=== PATIENT | male | born 1990 | race Caucasian/White ===

== ENCOUNTER 2020-10-03 11:02 | Inpatient (IN) | payer MEDICAID, OTHER ==
[~2020-10-03] VITALS: Ht 185.4 cm; Wt 110.8 kg
[~2020-10-03 11:02] MED LIST: ACET325T14 PO; ALPR0.5T7 PO
[2020-10-03] MEDS ORDERED: POLYETHYLENE GLYCOL 17 GM PACKET PO PRN (11:30)
[2020-10-03] MEDS ORDERED: ONDANSETRON ODT 4 MG PO PRN (11:30)
[2020-10-03] MEDS ORDERED: DOCUSATE 100 MG CAPSULE PO PRN (11:30)
[2020-10-03 12:55] VITALS: BP 100/63
[2020-10-03] MEDS ORDERED: PLEASE ENTER HEIGHT AND WEIGHT MC SCH (13:00)
[2020-10-03] MEDS: NICOTINE 14MG/24 HR PATCH.TD24 TD SCH (13:30)
[2020-10-03] MEDS ORDERED: DICL-249 PO (17:26)
[2020-10-03] MEDS ORDERED: CYCL10TA2 PO (17:26)
[2020-10-03 19:34] VITALS: BP 105/64
[2020-10-03] MEDS: OLANZAPINE 5 MG TABLET PO SCH (20:23)
[2020-10-03] MEDS: LORazepam 1MG TABLET PO PRN (20:27)
[2020-10-03] MEDS: ACETAMINOPHEN 325 MG TABLET PO PRN (20:48)
[2020-10-04 05:56] LABS: CHOL/HDL RATIO 4.6; FREE T4 (FREE THYROXINE) 1.02 ng/dL (0.76-1.46); LDL/HDL RATIO 2.8 (0.5-3.0)
[2020-10-04 07:29] VITALS: BP 111/72
[2020-10-04] MEDS: LORazepam 1MG TABLET PO PRN ×3 (09:39→23:20)
[2020-10-04] MEDS: ACETAMINOPHEN 325 MG TABLET PO PRN (09:39)
[2020-10-04] MEDS: NICOTINE 14MG/24 HR PATCH.TD24 TD SCH ×2 (13:30→17:58)
[2020-10-04 19:18] VITALS: BP 109/57
[2020-10-04] MEDS: OLANZAPINE 5 MG TABLET PO SCH (19:42)
[2020-10-05 07:54] VITALS: BP 96/55
[2020-10-05] MEDS: NICOTINE 14MG/24 HR PATCH.TD24 TD SCH (09:01)
[2020-10-05] MEDS: LORazepam 1MG TABLET PO PRN ×2 (09:01→14:12)
[2020-10-05 20:01] VITALS: BP 122/64
[2020-10-05] MEDS: OLANZAPINE 5 MG TABLET PO SCH (20:21)
[2020-10-06] VITALS (12 sets, daily range): BP systolic 110–134; BP diastolic 64–92
[2020-10-06] MEDS: LORazepam 1MG TABLET PO PRN ×2 (00:40→13:09)
[2020-10-06] MEDS: NICOTINE 14MG/24 HR PATCH.TD24 TD SCH (09:00)
[2020-10-06] MEDS: ACETAMINOPHEN 325 MG TABLET PO PRN (14:08)
[2020-10-06] MEDS: OLANZAPINE 5 MG TABLET PO SCH (20:39)
--- NOTE | 2020-10-06 21:40 | NUR ---
ANABEL LIMON - Fall Risk Medications present and NOT receiving anticoagulants. Signed: 10/06/20 at 2140 by Eber CORLEY
[2020-10-06 22:41] LABS: MICROSCOPIC AUTO
[2020-10-07 00:52] VITALS: BP 128/82
[2020-10-07 07:16] VITALS: BP 98/40
[2020-10-07] MEDS: NICOTINE 14MG/24 HR PATCH.TD24 TD SCH (10:28)
[2020-10-07] MEDS ORDERED: NICO-486 TD (13:52)
[2020-10-07] MEDS ORDERED: OLAN5TAB9 PO (13:52)
== END 2020-10-07 16:15 | disposition home or self-care (01) | DRG 751 ==
LOC: 3E 12:53
PROVIDERS: ADMIT Psychiatry & Neurology Psychosomatic Medicine; ATTEND Psychiatry & Neurology Psychosomatic Medicine
DX: F33.3 Major depressive disorder, recurrent, severe with psychotic symptoms (principal); R45.851 Suicidal ideations; F41.1 Generalized anxiety disorder; F17.210 Nicotine dependence, cigarettes, uncomplicated; F42.9 Obsessive-compulsive disorder, unspecified; F43.10 Post-traumatic stress disorder, unspecified; G89.29 Other chronic pain; M54.5 Low back pain; M48.00 Spinal stenosis, site unspecified; Z66 Do not resuscitate; Z59.0 Homelessness; Z91.5 Personal history of self-harm; Z88.8 Allergy status to other drugs, medicaments and biological substances; Z71.6 Tobacco abuse counseling
CPT/HCPCS: 36415; 80061; 81001; 84439; 84443; 93005

== ENCOUNTER 2021-02-20 22:31 | Emergency (ER) | payer MEDICAID ==
[~2021-02-20] VITALS: Ht 185.4 cm; Wt 102.4 kg
[~2021-02-20 22:31] MED LIST changes: +CYCL10TA2 PO; +DICL-249 PO; +NICO-486 TD; +OLAN5TAB69 PO
[2021-02-20] MEDS ORDERED: IBUPROFEN 600 MG TABLET PO ONE (23:30)
--- NOTE | 2021-02-20 23:33 | NUR ---
PATIENT AMBULATORY TO RESTROOM.
[2021-02-20 23:41] LABS: BASOPHILS % (AUTO) 1 % (0-1); EOSINOPHILS % (AUTO) 1 % (1-7); LYMPHOCYTES % (AUTO) 21 % (22-44); MEAN CORPUSCULAR HEMOGLOBIN 30.9 pg (27.5-34.5); MEAN CORPUSCULAR HGB CONC 33.2 g/dL (33.2-36.2); MEAN PLATELET VOLUME 9.1 fL (7.4-10.4); MONOCYTES % (AUTO) 9 % (2-9); NEUTROPHILS % (AUTO) 68 % (42-75); PLATELET COUNT 343 x10^3/uL (130-400); RED BLOOD COUNT 4.63 x10^6/uL (4.38-5.82); RED CELL DISTRIBUTION WIDTH 14.7 % (9.4-14.8)
--- NOTE | 2021-02-20 23:45 | NUR ---
PATIENT PROVIDED WITH SPRITE AND WARM BLANKETS REQUESTED.
[2021-02-20 23:53] LABS: CHLORIDE 104 mmol/L (98-107); SALICYLATE LEVEL 12.6 mg/dL (2.8-20.0)
[2021-02-20 23:56] LABS: ALANINE AMINOTRANSFERASE 29 U/L (12-78); BILIRUBIN,TOTAL 0.6 mg/dL (0.2-1.0); CREATININE 0.96 mg/dL (0.7-1.3); TOTAL PROTEIN 7.8 g/dL (6.4-8.2)
[2021-02-21] LABS: AMPHETAMINE SCREEN, URINE Positive (Negative); BARBITURATE SCREEN, URINE Negative (Negative); BENZODIAZEPINE SCREEN, URINE Positive (Negative); CANNABINOID SCREEN, URINE Negative (Negative); COCAINE SCREEN, URINE Negative (Negative); METHADONE SCREEN, URINE Negative (Negative); OPIATE SCREEN, URINE Negative (Negative)
[2021-02-21] MEDS ORDERED: IBUPROFEN 600 MG TABLET ONE (00:06)
[2021-02-21 00:09] LABS: ALBUMIN 4.2 g/dL (3.4-5.0); ANION GAP 10 mmol/L (5-15); CALCIUM 9.6 mg/dL (8.5-10.1)
--- NOTE | 2021-02-21 00:09 | NUR ---
PT REFUSED IBUPROFEN
[2021-02-21 00:11] LABS: ALKALINE PHOSPHATASE 71 U/L (45-117)
--- NOTE | 2021-02-21 00:50 | NUR ---
REPORT GIVEN TO KWADWO CHANDRA
--- NOTE | 2021-02-21 00:53 | NUR ---
Report from Delisa BURKETT
--- NOTE | 2021-02-21 03:01 | NUR ---
Patient resting with eyes closed, bilateral chest rise and fall, no apparent distress. Continue to monitor patient.
--- NOTE | 2021-02-21 04:22 | NUR ---
teledoc placed in room
--- NOTE | 2021-02-21 05:36 | NUR ---
Report from telepsych provider: Pt reports that he has SI to telepsych provider and that his plan is to hang himself. Pt didn't want to tell staff because he didnt want to be placed on a legal hold. Provider recomends hospitalization for pt saftey.
--- NOTE | 2021-02-21 05:54 | NUR ---
ZACH MANUEL IS TAKING A LOOK AT PT
--- NOTE | 2021-02-21 06:05 | NUR ---
room secure, 2 of 2 belongings bags placed in lock up. sitter initiated. patient verbalized understanding regarding legal hold status.
--- NOTE | 2021-02-21 06:08 | NUR ---
ZACH CHAND), ACCEPTING DR. LIMA
--- NOTE | 2021-02-21 06:54 | NUR ---
REPORT FROM KWADWO CHANDRA. PT RESTING IN [facility], EYES CLOSED, NADN AT THIS TIME, TM.
[2021-02-21 10:05] VITALS: BP 125/74
[2021-02-21] MEDS ORDERED: ARIP10TA33 PO (12:52)
[2021-02-21] MEDS ORDERED: SERT50TA28 PO (12:52)
== END 2021-02-21 10:16 ==
LOC: ED 23:12
DX: F33.9 Major depressive disorder, recurrent, unspecified (principal); R45.851 Suicidal ideations; M54.5 Low back pain; G89.29 Other chronic pain
CPT/HCPCS: 36415; 80053; 80299; 80307; 80320; 80329; 85025; 87426; G0480

== ENCOUNTER 2021-02-21 08:18 | Inpatient (IN) | payer MEDICAID ==
[~2021-02-21] VITALS: Ht 185.4 cm; Wt 106.6 kg
[2021-02-21] MEDS ORDERED: ONDANSETRON ODT 4 MG PO PRN (09:00)
[2021-02-21] MEDS ORDERED: POLYETHYLENE GLYCOL 17 GM PACKET PO PRN (09:00)
[2021-02-21] MEDS ORDERED: BISACODYL 10 MG SUPP PR PRN (09:00)
[2021-02-21] MEDS ORDERED: DOCUSATE 100 MG CAPSULE PO PRN (09:00)
[2021-02-21] MEDS ORDERED: PLEASE ENTER HEIGHT AND WEIGHT MC SCH (11:30)
[2021-02-21] MEDS ORDERED: SERT50TA28 PO (12:52)
[2021-02-21] MEDS ORDERED: ARIP10TA33 PO (12:52)
[2021-02-21 12:54] VITALS: BP 102/61
[2021-02-21] MEDS ORDERED: LORazepam 1MG TABLET ONE (14:50)
[2021-02-21] MEDS: LORazepam 1MG TABLET PO PRN (14:56)
[2021-02-21 16:54] LABS: MICROSCOPIC INDICATED
[2021-02-21] MEDS ORDERED: NICOTINE 14MG/24 HR PATCH.TD24 TD SCH (18:00)
[2021-02-21 19:16] VITALS: BP 105/70
[2021-02-21] MEDS: OLANZAPINE 10 MG TABLET PO SCH (20:12)
[2021-02-22 07:32] VITALS: BP 113/64
[2021-02-22] MEDS: FLUOXETINE 10 MG CAP PO SCH (08:21)
[2021-02-22] MEDS: LORazepam 1MG TABLET PO PRN ×2 (12:44→21:08)
[2021-02-22 19:35] VITALS: BP 113/69
[2021-02-22] MEDS: OLANZAPINE 10 MG TABLET PO SCH (20:23)
[2021-02-22] MEDS: CYCLOBENZAPRINE 10 MG TABLET PO PRN (20:24)
[2021-02-22] MEDS: ACETAMINOPHEN 325 MG TABLET PO PRN (20:24)
[2021-02-23 08:04] VITALS: BP 108/70
[2021-02-23] MEDS: FLUOXETINE 10 MG CAP PO SCH (08:33)
[2021-02-23] MEDS: NICOTINE 14MG/24 HR PATCH.TD24 TD SCH (08:34)
[2021-02-23 15:08] VITALS: BP 103/63
[2021-02-23] MEDS: LORazepam 1MG TABLET PO PRN (15:08)
[2021-02-23 19:05] VITALS: BP 106/61
[2021-02-23] MEDS: OLANZAPINE 10 MG TABLET PO SCH (20:54)
[2021-02-24 07:26] VITALS: BP 113/74
[2021-02-24] MEDS: FLUOXETINE 10 MG CAP PO SCH (08:33)
[2021-02-24] MEDS: NICOTINE 14MG/24 HR PATCH.TD24 TD SCH (08:33)
[2021-02-24] MEDS: ACETAMINOPHEN 325 MG TABLET PO PRN (08:39)
[2021-02-24] MEDS: CYCLOBENZAPRINE 10 MG TABLET PO PRN ×2 (08:40→18:22)
[2021-02-24] MEDS: LORazepam 1MG TABLET PO PRN ×2 (10:11→17:50)
[2021-02-24 19:25] VITALS: BP 112/72
[2021-02-24] MEDS: OLANZAPINE 10 MG TABLET PO SCH (20:29)
[2021-02-25 07:16] VITALS: BP 108/61
[2021-02-25] MEDS: ACETAMINOPHEN 325 MG TABLET PO PRN ×2 (08:24→14:16)
[2021-02-25] MEDS: FLUOXETINE 10 MG CAP PO SCH (08:24)
[2021-02-25] MEDS: NICOTINE 14MG/24 HR PATCH.TD24 TD SCH (08:25)
--- NOTE | 2021-02-25 09:31 | NUR ---
ANABEL LIMON - Fall Risk Medications present and NOT receiving anticoagulants. Patient reported fall on 02/24/21 at unknown time and shift. Fall risk meds present include cyclobenzaprine, fluoxetine, lorazepam, and olanzapine. However, meds given around the time of the fall are unknown. Signed: 02/25/21 at 0936 by Lynnette CORLEY
[2021-02-25] MEDS: LORazepam 1MG TABLET PO PRN ×2 (12:20→20:16)
[2021-02-25] MEDS: CYCLOBENZAPRINE 10 MG TABLET PO PRN (14:17)
[2021-02-25] MEDS: DULOXETINE 30 MG CAPSULE.DR PO SCH (14:54)
[2021-02-25] MEDS ORDERED: LIDODERM 5% PATCH TD PRN (16:00)
[2021-02-25 19:25] VITALS: BP 115/64
[2021-02-25] MEDS: OLANZAPINE 10 MG TABLET PO SCH (20:16)
[2021-02-26 07:41] VITALS: BP 132/78
[2021-02-26] MEDS: NICOTINE 14MG/24 HR PATCH.TD24 TD SCH (08:22)
[2021-02-26] MEDS: DULOXETINE 30 MG CAPSULE.DR PO SCH (08:22)
[2021-02-26] MEDS: LORazepam 1MG TABLET PO PRN ×2 (12:06→21:15)
[2021-02-26] MEDS: ACETAMINOPHEN 325 MG TABLET PO PRN ×2 (13:00→20:00)
[2021-02-26] MEDS: CYCLOBENZAPRINE 10 MG TABLET PO PRN ×2 (13:00→21:21)
[2021-02-26 19:21] VITALS: BP 125/68
[2021-02-26] MEDS: OLANZAPINE 10 MG TABLET PO SCH (21:15)
[2021-02-27 07:56] VITALS: BP 119/66
[2021-02-27] MEDS: DULOXETINE 30 MG CAPSULE.DR PO SCH (07:57)
[2021-02-27] MEDS: NICOTINE 14MG/24 HR PATCH.TD24 TD SCH (07:57)
[2021-02-27] MEDS: LORazepam 1MG TABLET PO PRN ×2 (11:46→20:35)
[2021-02-27] MEDS: ACETAMINOPHEN 325 MG TABLET PO PRN (15:09)
[2021-02-27] MEDS: CYCLOBENZAPRINE 10 MG TABLET PO PRN ×2 (15:09→20:35)
[2021-02-27 19:34] VITALS: BP_SYST 121; BP_SYST 131; BP_DIAS 80; BP_DIAS 83
[2021-02-27] MEDS: OLANZAPINE 10 MG TABLET PO SCH (19:43)
[2021-02-28 07:53] VITALS: BP 120/69
[2021-02-28] MEDS: NICOTINE 14MG/24 HR PATCH.TD24 TD SCH (07:59)
[2021-02-28] MEDS: LORazepam 1MG TABLET PO PRN ×2 (07:59→20:38)
[2021-02-28] MEDS: DULOXETINE 30 MG CAPSULE.DR PO SCH (07:59)
[2021-02-28] MEDS: ACETAMINOPHEN 325 MG TABLET PO PRN ×2 (07:59→14:57)
[2021-02-28] MEDS: CYCLOBENZAPRINE 10 MG TABLET PO PRN ×3 (08:00→20:38)
[2021-02-28 19:15] VITALS: BP 115/73
[2021-02-28] MEDS: OLANZAPINE 10 MG TABLET PO SCH (19:49)
[2021-03-01 07:20] VITALS: BP 118/69
[2021-03-01] MEDS: NICOTINE 14MG/24 HR PATCH.TD24 TD SCH (09:00)
[2021-03-01] MEDS: DULOXETINE 30 MG CAPSULE.DR PO SCH (09:12)
[2021-03-01] MEDS: CYCLOBENZAPRINE 10 MG TABLET PO PRN (10:08)
[2021-03-01] MEDS: ACETAMINOPHEN 325 MG TABLET PO PRN (11:29)
[2021-03-01] MEDS: LORazepam 1MG TABLET PO PRN (11:29)
[2021-03-01] MEDS ORDERED: DULO30CA2 PO (12:26)
[2021-03-01] MEDS ORDERED: OLAN10TA69 PO (12:26)
== END 2021-03-01 13:33 | disposition home or self-care (01) | DRG 885 ==
LOC: 3E 10:49
PROVIDERS: ADMIT Psychiatry & Neurology Psychosomatic Medicine; ATTEND Psychiatry & Neurology Psychosomatic Medicine
DX: F33.3 Major depressive disorder, recurrent, severe with psychotic symptoms (principal); F11.20 Opioid dependence, uncomplicated; F15.20 Other stimulant dependence, uncomplicated; R45.851 Suicidal ideations; F10.21 Alcohol dependence, in remission; F17.200 Nicotine dependence, unspecified, uncomplicated; F41.1 Generalized anxiety disorder; F42.9 Obsessive-compulsive disorder, unspecified; M54.9 Dorsalgia, unspecified; M62.838 Other muscle spasm; F43.10 Post-traumatic stress disorder, unspecified; G89.29 Other chronic pain; Z79.899 Other long term (current) drug therapy
CPT/HCPCS: 36415; 71045; 80053; 80299; 80307; 80320; 80329; 81001; 85025; 87426; 93005; G0480

== ENCOUNTER 2021-03-23 21:49 | Emergency (ER) | payer MEDICAID ==
[~2021-03-23] VITALS: Ht 185.4 cm; Wt 108.5 kg
[~2021-03-23 21:49] MED LIST changes: +ARIP10TA33 PO; +DULO30CA2 PO; +OLAN10TA69 PO; +SERT50TA28 PO
[2021-03-23 22:18] VITALS: BP 148/77
[2021-03-23 23:36] LABS: ALBUMIN 3.8 g/dL (3.4-5.0); ANION GAP 8 mmol/L (5-15); CHLORIDE 105 mmol/L (98-107)
[2021-03-23 23:42] LABS: ALANINE AMINOTRANSFERASE 43 U/L (12-78); ALKALINE PHOSPHATASE 106 U/L (45-117); BILIRUBIN,TOTAL 0.4 mg/dL (0.2-1.0); CREATININE 0.87 mg/dL (0.7-1.3); TOTAL PROTEIN 7.9 g/dL (6.4-8.2)
[2021-03-23 23:52] LABS: BASOPHILS % (AUTO) 1 % (0-1); EOSINOPHILS % (AUTO) 1 % (1-7); LYMPHOCYTES % (AUTO) 21 % (22-44); MEAN CORPUSCULAR HEMOGLOBIN 31.1 pg (27.5-34.5); MEAN CORPUSCULAR HGB CONC 33.5 g/dL (33.2-36.2); MEAN PLATELET VOLUME 9.7 fL (7.4-10.4); MONOCYTES % (AUTO) 8 % (2-9); NEUTROPHILS % (AUTO) 69 % (42-75); PLATELET COUNT 348 x10^3/uL (130-400); RED BLOOD COUNT 4.69 x10^6/uL (4.38-5.82); RED CELL DISTRIBUTION WIDTH 14.4 % (9.4-14.8)
[2021-03-24] LABS: MICROSCOPIC INDICATED
[2021-03-24] MEDS ORDERED: HYDROcodone/APAP 5/325 TABLET ONE (00:45)
[2021-03-24] MEDS ORDERED: HYDROcodone/APAP 5/325 TABLET PO ONE (01:00)
== END 2021-03-24 01:14 | disposition home or self-care (01) ==
LOC: ED 22:15
DX: R10.9 Unspecified abdominal pain (principal); R11.2 Nausea with vomiting, unspecified; F17.200 Nicotine dependence, unspecified, uncomplicated
CPT/HCPCS: 36415; 74176; 80053; 81001; 83690; 85025; 99284

== ENCOUNTER 2021-03-24 01:12 | Emergency (ER) | payer MEDICAID | END 2021-03-24 01:18 | LOC: ED 01:12 | DX: R45.851 Suicidal ideations (principal); Z53.21 Procedure and treatment not carried out due to patient leaving prior to being seen by health care provider ==

== ENCOUNTER 2021-03-24 15:23 | Inpatient (IN) | payer MEDICAID ==
[~2021-03-24] VITALS: Ht 185.4 cm; Wt 106.0 kg
[2021-03-30 07:38] VITALS: BP 117/69
== END 2021-03-30 13:15 | disposition home or self-care (01) | DRG 885 ==
LOC: 3E 16:17
PROVIDERS: ADMIT Psychiatry & Neurology Psychosomatic Medicine; ATTEND Psychiatry & Neurology Psychosomatic Medicine
DX: F33.3 Major depressive disorder, recurrent, severe with psychotic symptoms (principal); F41.1 Generalized anxiety disorder; F15.10 Other stimulant abuse, uncomplicated; F10.10 Alcohol abuse, uncomplicated; F17.200 Nicotine dependence, unspecified, uncomplicated; F42.9 Obsessive-compulsive disorder, unspecified; F43.10 Post-traumatic stress disorder, unspecified; N20.0 Calculus of kidney; Z79.899 Other long term (current) drug therapy